=== PATIENT | female | born 2000 | race Caucasian/White ===

== ENCOUNTER 2022-02-26 11:14 | Day surgery (SDC) | payer OTHER ==
[2022-02-17 15:54] VITALS: BMI 28.8
[2022-02-26 12:32] VITALS: RESP 18; TEMP 98
[2022-02-26 12:50] VITALS: BP 110/60; PULSE 80
== END 2022-02-26 12:55 | disposition home or self-care (01) ==
LOC: FASU-ENDO 11:14
PROVIDERS: ATTEND Internal Medicine Gastroenterology
PROC: 0DBL8ZX Excision of Transverse Colon, Via Natural or Artificial Opening Endoscopic, Diagnostic (ICD-10-PCS; 2022-02-26)
PROC: 0DBP8ZX Excision of Rectum, Via Natural or Artificial Opening Endoscopic, Diagnostic (ICD-10-PCS; 2022-02-26)
PROC: 0DBM8ZX Excision of Descending Colon, Via Natural or Artificial Opening Endoscopic, Diagnostic (ICD-10-PCS; 2022-02-26)
PROC: 0DBK8ZX Excision of Ascending Colon, Via Natural or Artificial Opening Endoscopic, Diagnostic (ICD-10-PCS; principal; 2022-02-26 12:10)
DX: K64.1 Second degree hemorrhoids (principal); K64.8 Other hemorrhoids
CPT/HCPCS: 81025; 88305-TC